=== PATIENT | male | born 1975 | race Caucasian/White ===

== ENCOUNTER 2017-05-06 21:52 | Emergency (ER) | payer SELFPAY ==
--- NOTE | 2017-05-06 21:56 | EDPHY ---
H & P Source: Patient - Medical/Surgical History Hx Asthma: No Hx Chronic Respiratory Disease: No Hx Diabetes: No Hx Cardiac Disease: No Hx Renal Disease: No Hx Cirrhosis: No Hx Alcoholism: No Hx HIV/AIDS: No Hx Splenectomy or Spleen Trauma: No Other PMH: KIDNEY STONE - Social History Smoking Status: Never smoked HPI/ROS: HPI CHIEF COMPLAINT: Syncope, nasal laceration, head injury HISTORY OF PRESENT ILLNESS: Patient is a very pleasant for old male who presents emergency room by private vehicle with a nasal bridge laceration. Reports that he sustained this after falling. Patient states that he was taking his albuterol and he was taking 3 deep breaths in. On his 3rd deep breath in he passed out. Patient fell forward striking his face against the coffee table. He sustained a nasal bridge laceration. Of note upon arrival the patient states that he has no health insurance and he would like to minimize cost as much as possible. He is declining any blood work , declines EKG, declined CT imaging of his face head or neck. States that he only wants a nasal bridge laceration repaired and an updated tetanus shot. The patient is mentating appropriately he has a GCS 15 is not intoxicated he is able to make his own medical decisions. I discussed the risk versus benefit of not imaging and having missed injury. The patient understands the risk of declining all further workup except for nasal bridge laceration repair. Past Medical History: No significant medical history Past Surgical History: No significant surgical history Social History: Denies daily use drugs alcohol tobacco. Family History: Noncontributory ROS REVIEW OF SYSTEMS: A comprehensive 10 point review of systems is otherwise negative aside from elements mentioned in the history of present illness. Exam Constitutional appears well nontoxic, triage nursing summary reviewed, vital signs reviewed, awake/alert. Eyes normal conjunctivae and sclera, EOMI, PERRLA. HENT midface is stable. Nasal bridge laceration present. 3 cm x 2 cm. Noted swelling to the nasal bridge. No epistaxis. moist mucus membranes, no epistaxis, neck supple/ no meningismus, no raccoon eyes. Respiratory clear to auscultation bilaterally, normal breath sounds, no respiratory distress, no wheezing. Cardiovascular rate normal, regular rhythm, no murmur, no edema, distal pulses normal. Gastrointestinal soft, non-tender, no rebound, no guarding, normal bowel sounds, no distension, no pulsatile mass. Genitourinary no CVA tenderness. Musculoskeletal no midline vertebral tenderness, full range of motion, no calf swelling, no tenderness of extremities, no meningismus, good pulses, neurovascularly intact. Skin pink, warm, & dry, no rash, skin atraumatic. Neurologic awake, alert and oriented x 3, AAOx3, moves all 4 extremities equally, motor intact, sensory intact, CN II-XII intact, normal cerebellar, normal vision, normal speech. Psychiatric normal mood/affect. Heme/Lymph/Immune no lymphadenopathy. Differential Diagnosis: Includes but is not limited to in a particular order nasal bridge laceration. Nasal bridge trauma. Nasal bone fractures, closed head injury, intracranial bleed, skull fracture, cervical spine injury, vasovagal syncope, cardiogenic syncope, cardiac arrhythmia, pneumothorax Medical Decision Making: Plan for this patient I did recommend that we image his head given traumatic fall, also recommend EKG due to syncope and basic blood work however he has declined. Declined any imaging, IV establishment blood work EKG. He simply would like his laceration repaired tetanus shot up-to -date. He understands the risks of not getting a full syncopal workup including imaging. This includes morbidity or mortality. Great morbidity. Given that the patient has medical capacity to make this decision he will have his nasal bridge laceration repaired. Tetanus shot updated. And his request will not pursue any further workup for syncope or head injury. However he does understand if he develops any worsening symptoms includes worsening headache, vomiting, neck pain, fever questions or concerns he should immediately return to the emergency room. He understands the risk of doing this. Re-evaluation: Patient's laceration repaired by Fest[facility] DIOS. Please see her laceration repair. ( Giancarlo Ronquillo) Constitutional: Initial Vital Signs Temperature (C) 36.6 C 05/06/17 21:54 Heart Rate 93 05/06/17 21:54 Respiratory Rate 16 05/06/17 21:54 Blood Pressure 145/89 H 05/06/17 21:54 O2 Sat (%) 95 05/06/17 21:54 O2 Delivery Mode Room Air Allergies/Adverse Reactions: No Known Allergies Allergy (Unverified 04/23/14 18:33) Home Medications: Medication Instructions Recorded No Home Meds 04/23/14 Medical Decision Making Procedures: Procedure: Laceration repair. Verbal consent was obtained from the patient. The 3 cm x 2 cm complex v-shaped laceration on the bridge of the nose was anesthetized in the usual fashion. The wound was irrigated, draped and explored to its base with a gloved finger. There were no deep structures involved. No tendon injury was identified. The wound was repaired with #8, 5 0 PDS. Good hemostasis was achieved and patient tolerated procedure well. Steri-Strips were applied. The procedure was performed by myself. (Angy Mortensen) Departure - Departure Disposition: Home, Routine, Self-Care Clinical Impression: Syncope Qualifiers: Syncope type: unspecified Qualified Code(s): R55 - Syncope and collapse Facial laceration Qualifiers: Encounter type: initial encounter Qualified Code(s): S01.81XA - Laceration without foreign body of other part of head, initial encounter Condition: Good Instructions: Care For Your Stitches (ED), Laceration (ED) Additional Instructions: 1. Keep her wound clean, dry and protected. Watch for infection. This includes redness, swelling, drainage. 2. Please return to the emergency room in 7 days to have her sutures removed. Or you may follow up with her primary care doctor 3. Since we did not perform a full passing out workup or imaging of her head if you have any further symptoms worsening of condition including headache neck pain vomiting or you do not feel right please return to the emergency room. 4. Additionally your tetanus shot has been updated here in the emergency room. Referrals: NONE *PRIMARY CARE P,. [Primary Care Provider] - As per Instructions
[2017-05-06] MEDS ORDERED: TDAP ADULT 0.5 ML INJ (BOOSTRIX) IM ONE (22:07)
[2017-05-06 22:52] VITALS: BP 149/83; PULSE 90; RESP 18; TEMP 98.1; O2SAT 94
== END 2017-05-06 22:52 | disposition home or self-care (01) ==
PROC: 09QKXZZ Repair Nasal Mucosa and Soft Tissue, External Approach (ICD-10-PCS; principal; 2017-05-06)
DX: S01.21XA Laceration without foreign body of nose, initial encounter (principal); R55 Syncope and collapse; Z23 Encounter for immunization; W18.09XA Striking against other object with subsequent fall, initial encounter